=== PATIENT | female | born 1960 | race Two or more races ===

== ENCOUNTER 2019-05-05 19:54 | Emergency (ER) | payer MEDICAID, OTHER ==
[~2019-05-05] VITALS: Ht 160 cm; Wt 80.7 kg
[~2019-05-05 19:54] MED LIST: IBUP-2269 PO; MECL-118 PO; METF-440 PO; [UNRECOGNIZED DRUG - OTHER]
--- NOTE | 2019-05-05 21:32 | NUR ---
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
[2019-05-05] MEDS ORDERED: IBUPROFEN 600 MG TABLET PO ONE ×2 (22:00→22:01)
--- NOTE | 2019-05-05 22:10 | NUR ---
TECH AT BEDSIDE FOR XRAY
--- NOTE | 2019-05-05 22:39 | NUR ---
PT TAKEN TO CT
--- NOTE | 2019-05-05 23:50 | NUR ---
PT BROUGHT BACK FROM CT
--- NOTE | 2019-05-06 00:24 | NUR ---
PT IN BED RESTING COMFORTABLY, NO COMPLAINT OF PAIN, SON AT BEDSIDE, AWAITING CT RESULTS
--- NOTE | 2019-05-06 01:42 | NUR ---
Patient discharged to home in stable condition. Written and verbal after care instructions given. Patient verbalizes understanding of instruction.
[2019-05-06 01:49] VITALS: BP 134/69
== END 2019-05-06 01:50 | disposition home or self-care (01) ==
LOC: ER 19:58
DX: M25.561 Pain in right knee (principal); F32.9 Major depressive disorder, single episode, unspecified; E11.9 Type 2 diabetes mellitus without complications; R42 Dizziness and giddiness; Z85.3 Personal history of malignant neoplasm of breast; Z90.13 Acquired absence of bilateral breasts and nipples; Z98.890 Other specified postprocedural states; Z88.0 Allergy status to penicillin; Z88.8 Allergy status to other drugs, medicaments and biological substances; W18.09XA Striking against other object with subsequent fall, initial encounter; Y93.89 Activity, other specified; Y92.89 Other specified places as the place of occurrence of the external cause; Y99.8 Other external cause status
CPT/HCPCS: 73564-TC; 73700-TC; 93971-TC

== ENCOUNTER 2025-07-19 17:53 | Emergency (ER) | payer MEDICARE, OTHER ==
[~2025-07-19] VITALS: Ht 162.6 cm; Wt 65.8 kg
[~2025-07-19 17:53] MED LIST changes: -IBUP-2269 PO; +IBUP-2715 PO
[2025-07-19] MEDS: NITROGLYCERIN 0.4 MG/TAB BOTTLE SL ONE (18:30)
[2025-07-19] MEDS ORDERED: NITROGLYCERIN 0.4 MG/TAB BOTTLE ONE (18:40)
[2025-07-19] MEDS ORDERED: ASPIRIN 325 MG TABLET ONE (18:40)
[2025-07-19 18:44] LABS: PLATELET COUNT (AUTO) 279 K/uL (150-450); RED BLOOD CELL COUNT(AUTO) 3.88 MIL/uL (4.0-5.2); RED CELL DISTRIBUTION WIDTH 13.8 % (11.5-15.0); WHITE BLOOD COUNT (AUTO) 5.9 K/uL (4.3-11.0)
[2025-07-19] MEDS: ASPIRIN 325 MG TABLET PO ONE (18:51)
[2025-07-19 19:05] LABS: CALCIUM, SERUM 8.8 mg/dL (8.5-10.1); CREATININE 0.8 mg/dL (0.6-1.3); SODIUM SERUM 137 mmol/L (136-145); UREA NITROGEN, BLOOD 15 mg/dL (7-18)
[2025-07-19 19:17] LABS: ASPARTATE AMINOTRANSFERASE 23 U/L (15-37); NT-PRO BNP 106 pg/mL (0-125); TOTAL PROTEIN, SERUM 7.6 g/dL (6.4-8.2)
[2025-07-19 21:20] VITALS: BP 130/66; TEMP 98; O2SAT 100
== END 2025-07-19 21:21 | disposition home or self-care (01) ==
LOC: ER 17:53
DX: R07.89 Other chest pain (principal); E11.9 Type 2 diabetes mellitus without complications; F32.A Depression, unspecified; Z88.0 Allergy status to penicillin; Z90.13 Acquired absence of bilateral breasts and nipples; Z86.69 Personal history of other diseases of the nervous system and sense organs; Z87.09 Personal history of other diseases of the respiratory system; Z88.8 Allergy status to other drugs, medicaments and biological substances
CPT/HCPCS: 36415; 71045-TC; 80048-TC; 80076-TC; 83690-TC; 83880; 84484-TC; 85025-TC